=== PATIENT | female | born 1975 | race Caucasian/White ===

== ENCOUNTER 2021-05-05 10:14 | Inpatient (IN) | payer OTHER ==
[~2021-05-05] VITALS: Ht 160 cm; Wt 47.9 kg
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
[2021-05-05 12:33] LABS: BASOPHILS # (AUTO) 0.1 X10'3 (0-0.2); BASOPHILS % (AUTO) 0.8 % (0-1); EOSINOPHILS % (AUTO) 0.1 % (0-6); HEMATOCRIT 41.5 % (35.0-45.0); HEMOGLOBIN 14.3 g/dl (12.0-16.0); LYMPHOCYTES % (AUTO) 10.8 % (21-51); MEAN CORPUSCULAR HEMOGLOBIN 31.7 PG (27.0-31.0); MEAN CORPUSCULAR HGB CONC 34.5 g/dL (33.0-36.5); MEAN CORPUSCULAR VOLUME 92.1 FL (78-98); MEAN PLATELET VOLUME 7.4 FL (7.4-10.4); MONOCYTES # (AUTO) 0.5 X10'3 (0-0.9); MONOCYTES % (AUTO) 5.6 % (2-12); NEUTROPHILS # (AUTO) 7.7 X10'3 (1.8-7.7); NEUTROPHILS % (AUTO) 82.7 % (42-75); PLATELET COUNT 478 X10'3 (140-440); RED CELL DISTRIBUTION WIDTH 12.9 % (11.5-14.5); WHITE BLOOD COUNT 9.3 X10'3 (4.5-11.0)
[2021-05-05 12:53] LABS: GLUCOSE 103 MG/DL (70-104); POTASSIUM 3.3 MMOL/L (3.5-5.1); SODIUM 140 MMOL/L (135-145)
[2021-05-05 12:54] LABS: ALANINE AMINOTRANSFERASE 27 U/L (12-78); ALBUMIN 4.2 G/DL (3.4-5.0); ALKALINE PHOSPHATASE 70 IU/L (46-116); ANION GAP 10 (8-16); ASPARTATE AMINO TRANSFERASE 21 U/L (10-37); BILIRUBIN,TOTAL 0.4 MG/DL (0.1-1.0); BLOOD UREA NITROGEN 11 MG/DL (7-18); BUN/CREATININE RATIO 12.6 (6.6-38.0); CALCIUM 9.2 MG/DL (8.5-10.1); CHLORIDE 105 MMOL/L (99-107); CREATININE 0.87 MG/DL (0.40-0.90); TOTAL CARBON DIOXIDE 25.5 MMOL/L (24-32); TOTAL PROTEIN 8.5 G/DL (6.4-8.2); eGFR 71 ML/MIN
[2021-05-05 12:59] LABS: ETHANOL < 0.010 GM/DL (0.0-0.010)
--- NOTE | 2021-05-05 18:26 | NUR ---
Patient recieved from main ER accompanied by daughter and sister, no s/sx acute distress noted, will give report to oncoming shift.
[2021-05-05] MEDS ORDERED: olanzapine 10mg tablet PO ONE (19:55)
[2021-05-05] MEDS ORDERED: hydrALAZINE 25 MG tablet PO SCH (19:55)
[2021-05-05 20:07] LABS: CLARITY,URINE SLIGHTLY CLOUDY (Clear); COLOR,URINE YELLOW (Yellow); GLUCOSE, URINE NEGATIVE (Neg); KETONES,URINE >=80 mg/dl (Neg); LEUKOCYTE ESTERASE ,URINE NEGATIVE (Neg); NITRITES, URINE POSITIVE (Neg); OCCULT BLOOD,URINE TRACE-INTACT (Neg); PROTEIN,URINE NEGATIVE (Neg); UROBILINOGEN,URINE 0.2 E.U/dL (0.2-1.0)
[2021-05-05 20:10] LABS: URINE HCG NEGATIVE (NEG)
[2021-05-05 20:14] LABS: UA COLLECTION TYPE CLN CATCH MIDSTREAM
[2021-05-05 20:15] LABS: BACTERIA,URINE 1+ /HPF (Neg); MUCUS STRANDS FEW /LPF (Neg); RBC,URINE 0-2 /HPF (0-2); SQUAMOUS EPITHELIAL CELL,UR FEW /LPF (FEW)
[2021-05-05 20:23] LABS: URINE AMPHETAMINE SCREEN NEGATIVE (Neg); URINE BARBITUATE SCREEN NEGATIVE (Neg); URINE BENZODIAZEPINES SCREEN NEGATIVE (Neg); URINE CANNABINOID SCREEN POSITIVE (Neg); URINE COCAINE SCREEN NEGATIVE (Neg); URINE METHADONE SCREEN NEGATIVE (Neg); URINE OPIATE SCREEN NEGATIVE (Neg); URINE PHENCYCLIDINE SCREEN NEGATIVE (Neg)
--- NOTE | 2021-05-05 22:49 | NUR ---
PATIENTS IS VICKIE BOUDREAUX PHONE: [phone]
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
--- NOTE | 2021-05-05 23:31 | NUR ---
PATIENT IS SLEEPING QUIETLY IN A SUPINE POSITION.
[2021-05-06] MEDS ORDERED: ondansetron 4mg rapidly disintigrating tab PO ONE (01:55)
--- NOTE | 2021-05-06 01:58 | NUR ---
Pt awake and vomiting. New order for Zofran 4 mg ODT administered.
--- NOTE | 2021-05-06 02:30 | NUR ---
PATIENT AWOKE WITH NAUSEA AND IS EXHIBITING ANXIETY. CALMING MEASURES USED. PATIENT RETURNED TO SLEEP.
--- NOTE | 2021-05-06 03:35 | NUR ---
PATIENT IS SLEEPING QUIETLY ON HER RIGHT SIDE IN BED.
--- NOTE | 2021-05-06 05:19 | NUR ---
PACKET SENT TO MAINE OFFICE.
--- NOTE | 2021-05-06 07:00 | NUR ---
PT OBSERVED SLEEPING ON HER RIGHT SIDE. RR EVEN AND UNLABORED.
--- NOTE | 2021-05-06 07:30 | NUR ---
REQUESTING INFORMATION AND VISIT. PT DOES NOT WANT INFORMATION GIVEN TO THE AND DOES NOT WANT A VISIT.
--- NOTE | 2021-05-06 07:40 | NUR ---
PT REQUESTED THE PHONE TO TALK TO HER , VICKIE. SHE THEN HUNG THE PHONE UP.
--- NOTE | 2021-05-06 08:00 | NUR ---
PT AGREED TO SEE HER . TO VISIT AND BRING HER SOME MAGAZINES.
[2021-05-06] MEDS ORDERED: OLANZAPINE 5 MG TABLET PO SCH (08:05)
--- NOTE | 2021-05-06 09:19 | NUR ---
IS AT HER BEDSIDE. PT IS SLEEPING AGAIN ON HER RIGHT SIDE. RR EVEN AND UNLABORED.
--- NOTE | 2021-05-06 11:22 | NUR ---
PT'S IS IN AND OUT BECAUSE PT WANTS HIM HERE THEN SHE ASK HIM TO LEAVE AND THEN SHE WANTS HIM TO COME BACK. PT IS NOW RESTING AGAIN ON HER RIGHT SIDE. RR EVEN AND UNLABORED.
[2021-05-06] MEDS: olanzapine 10mg tablet PO SCH (12:07)
--- NOTE | 2021-05-06 12:47 | NUR ---
PT CONTUINES TO REST ON HER RIGHT SIDE.
--- NOTE | 2021-05-06 13:47 | NUR ---
PT'S DAUGHTER IS HERE VISITING HER. SHE BROUGHT HER SOME BOOKS AND CRAYONS. PT CONTINUES TO SLEEP. RR EVEN AND UNLABORED.
--- NOTE | 2021-05-06 13:58 | NUR ---
PT CONTINUES TO REST WITH HER DAUGHTER AT HER BEDSIDE.
[2021-05-06] MEDS: buPROPion SR 150mg tablet PO SCH (15:08)
[2021-05-06] MEDS: ESCITALOPRAM OXALATE 5 MG TABLET PO SCH (15:09)
--- NOTE | 2021-05-06 15:30 | NUR ---
PT SEEN BY [facility]. SHE ALSO TOOK HER HOME MEDS. SHE RECENTLY WAS GIVEN PRESCRIPTIONS FOR VISTIRIL AND TRAZADONE BUT HAS ONLY TAKEN TRAZADONE FOR ANXIETY X1 PER . PT HAS BEEN SLEEPING MOST OF THE DAY. SHE IS NOW ON OLANZAPINE 10MG DAILY.
--- NOTE | 2021-05-06 16:26 | NUR ---
PT'S AT THE BEDSIDE. PT UP ASKING FOR FOOD. SHE SLEPT THROUGH LUNCH.
--- NOTE | 2021-05-06 17:51 | NUR ---
Ramiro rich in [facility] - 05/06/21 at 1753 by DAVID PT IS UP WALKING AROUND AND ASKING STAFF TO DIAL A PHONE NUMBER FOR HER. SHE IS SMILING AND INTERACTING APPROPRIATELY WITH STAFF AND PEERS.
--- NOTE | 2021-05-06 17:53 | NUR ---
PT IS RESTING ON HER BED. SHE IS NOW ON A HOLD.
--- NOTE | 2021-05-06 20:00 | NUR ---
The patient has been resting quietly on her bed. She gave soft minimal replies. She is oriented. When asked why she was here she stated that she was very worried that her daughter was suicidal. When asked how her mood was she replied, "I'm tired, sad and bummed out but not upset" She denied feeling paranoid and then stated, "I've been feeling anxious because my son " She denied having anxiety currently. SHe denies having auditory or visual hallucinations. She denies suicidal or homicidal thoughts. She denies racing thoughts. She denied problems with her concentration and focus. Her affect is blunted. Her HR was 110. She may be minimimizing her symptoms.
--- NOTE | 2021-05-06 21:35 | NUR ---
The patient appears to be sleeping
--- NOTE | 2021-05-06 23:52 | NUR ---
The patient appears to be sleeping
--- NOTE | 2021-05-07 01:05 | NUR ---
The patient appears to be sleeping
--- NOTE | 2021-05-07 02:38 | NUR ---
The patient appears to be sleeping
--- NOTE | 2021-05-07 04:27 | NUR ---
The patient appears to be sleeping
--- NOTE | 2021-05-07 07:00 | NUR ---
Received patient who was sleeping. 1:1 patient assessment and interview completed. Patient appears to be slightly shaking in arms. Quiet voice responding to questions. Patient denies suicidal ideation. Patient denies hallucinations. Will continue to monitor.
[2021-05-07] MEDS: olanzapine 10mg tablet PO SCH (07:36)
[2021-05-07] MEDS: ESCITALOPRAM OXALATE 5 MG TABLET PO SCH (07:36)
[2021-05-07] MEDS: buPROPion SR 150mg tablet PO SCH (07:37)
--- NOTE | 2021-05-07 09:00 | NUR ---
Medications given per EMAR. Patient states she has no plan for suicide at this time, but reports having difficulty since her son due to a Fentanyl overdose. Patient speaks slowly and does not express herself and has no insight to what is going on with her at this time. Patient is alert & oriented. Reports she is from [place], but understands her place, time and date. Will continue to monitor. Resting at this time.
--- NOTE | 2021-05-07 11:00 | NUR ---
Patient's sister came to visit with patient. Patient told her she was not taking visitors and would not answer her questions. Sister left at this time. , Inder entered the department and requested to speak with his . Patient also told the patient "I am not taking visitors."
--- NOTE | 2021-05-07 13:00 | NUR ---
Patient called this RN over to her bedside. Patient asked if the water and the julienne crackers were safe to eat. Informed the patient that both were safe to eat. That both are from here inside the hospital, and I had just retrieved these items from our Nutrition Room. Patient then agreed and stated "I just need to be sure."
--- NOTE | 2021-05-07 14:00 | NUR ---
Patient requested to speak with me. Patient stated "I don't want any visitors anymore." Informed patient that we respect her decisions and will abide by them. Note typed by MEJIA Petit to inform all staff members of patient's decision.
[2021-05-07] MEDS ORDERED: LORazepam 1 MG tablet PO ONE (15:45)
--- NOTE | 2021-05-07 15:45 | NUR ---
Patient requested assistance. Went to patient's bedside and observed her arms shaking. Patient speaking in a soft manner stated "I need something for anxiety." Informed patient that I would go talk to the Emergency Dept MD: Dr. Bryson, and discuss an order for Ativan. Patient appeared to be relieved. Went to ED and spoke to Dr. Bryson and received order for Ativan 1mg po now. Ativan administered at 1545. (1615) Patient sleeping at this time. Appears comfortable.
--- NOTE | 2021-05-07 17:24 | NUR ---
Patient still sleeping at this time. Will continue to monitor in line of sight.
--- NOTE | 2021-05-07 19:51 | NUR ---
Pt awake in bed since start of shift. Guarded, denies mental health symptoms. Pt unable to explain why she is here said "my daughter and my beliefs were different and that caused problems."
--- NOTE | 2021-05-07 23:54 | NUR ---
Pt sleeping at this time.
--- NOTE | 2021-05-08 03:09 | NUR ---
Pt resting in bed with eyes closed at this time. Up x1 to BSC with moderate assist. Incontinent moderate amount of urine continent 400 cc clear noreen urine in BSC. Rosette care done skin clear.
--- NOTE | 2021-05-08 03:13 | NUR ---
Disregard previous note wrong pt.
--- NOTE | 2021-05-08 03:14 | NUR ---
Pt sleeping at this time. Awake up to BR independently went back to sleep.
--- NOTE | 2021-05-08 05:02 | NUR ---
Pt awake in bed has been coloring and reading.
--- NOTE | 2021-05-08 08:00 | NUR ---
Patient is resting upon arrival to shift, but not sleeping. She drives herself to get up and groom. She does eat a small amount of breakfast and does not act suspicious of the medicines that I give her. She verbalizes that she understands and is familiar with each medication. , Inder, calls for an update and provides information/background to me about her previous dx and concerns. He asks to visit. When i ask Edith if she would allow that, she states that he cannot come. When I ask about her daughter, Tiara, she hesitates stating that she is distrustful given yesterday she thought Tiara was coming, but her sister arrived instead and she felt tricked. By the end of this exchange, she verbalizes that she will think about letting Inder come. I inform Inder that he can call back in two hours to try again. During this time, Edith gets a bed upstairs and Tiara is updated. Dr. Sherman, Tiara's psychiatrist, calls to let us know he can help provide info and collaboration. I am told that James, the hospital social worker, stated that this cannot happen until she is of her 5150? I inform him of this and here is his number for collaboration in [place]: [phone]. Edith leaves hold unit at 0930.
[2021-05-08] MEDS: ESCITALOPRAM OXALATE 5 MG TABLET PO SCH (08:10)
[2021-05-08] MEDS: olanzapine 10mg tablet PO SCH (08:10)
[2021-05-08] MEDS: buPROPion SR 150mg tablet PO SCH (08:10)
[2021-05-08] MEDS ORDERED: mag hydrox/Alum hydrox/simeth 30ml oral suspension PO PRN (09:25)
[2021-05-08] MEDS ORDERED: acetaminophen 325mg tablet PO PRN ×2 (09:25)
[2021-05-08] MEDS ORDERED: loperamide 2mg capsule PO PRN (09:25)
[2021-05-08] MEDS ORDERED: magnesium hydroxide 30ml (MOM) UD suspension PO PRN (09:25)
--- NOTE | 2021-05-08 09:30 | NUR ---
ADMISSION NOTE: Patient was brought in on a 5150 for DTS and gravely disabled. Patient ambulates to the shower where two person skin check was performed, no skin issues. Patient was evaluated by Dr. Turk and then her daughter came up and visited for approximately 15 minutes and then the patient went to bed tearful. Patient denies A/V/H. Denies suicidality except for when she was 22 years old, she stated she started to take an overdose of Benadryl and then stopped herself. Patient's son overdosed approximately one month ago and patient states that she had a "breakdown". She does admit to making statements such as "I just want to ", with no intent to act. Patient states she is going through grief. Patient was observed walking down the hallway with her roommate amicably.
[2021-05-08 11:21] VITALS: BP 131/90
[2021-05-08] MEDS ORDERED: BUPR150T8 PO (12:45)
[2021-05-08] MEDS ORDERED: ESCI20TA17 PO (12:45)
[2021-05-08] MEDS ORDERED: LORazepam 0.5 MG tablet PO PRN (19:50)
[2021-05-08 20:16] VITALS: BP 142/86
[2021-05-08] MEDS: traZODone 50mg tablet PO PRN (20:28)
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
[2021-05-09 07:00] VITALS: BP 148/91
[2021-05-09] MEDS: olanzapine 10mg tablet PO SCH (08:00)
--- NOTE | 2021-05-09 08:05 | NUR ---
Malnutrition Consult: Noted pt stated wt loss of 2-13 lbs per RN malnutrition screen; no documented hx of wt loss in EMR. Pt PO intake ~34% of regular diet x 4 meals, pending further PO trends. marketing operations intern d/w RN pt physical state; RN stated pt is thin but does not appear to have any signs of muscle or fat wasting. No edema noted, w/ general/normal strength. Pt does not meet minimum criteria for malnutrition at this time. Will continue to monitor. Addendum: 05/09/21 at 0806 by Jed Marie - Medical Supply Technician RD Amended: Links added. Addendum: 05/09/21 at [address] I have reviewed assessment by marketing operations intern
[2021-05-09 08:46] LABS: CHOL/HDL RATIO 3.4 (0.00-4.99); CHOLESTEROL 209 MG/DL (0-200); HDL CHOLESTEROL 61 MG/DL (35-60); LDL CHOLESTEROL 107 MG/DL (50-100); TRIGLYCERIDES 93 MG/DL (20-135)
[2021-05-09 09:27] LABS: HEMOGLOBIN A1C 5.1 % (4.5-6.2)
[2021-05-09] MEDS ORDERED: BUPR-317 PO (10:28)
[2021-05-09] MEDS ORDERED: ESCITALOPRAM OXALATE 5 MG TABLET PO ONE ×2 (11:55→12:35)
[2021-05-09] MEDS ORDERED: COVID-19 VACC, MRNA(PFIZER)/PF--BNT162b2 syringe IMVAC ONE (12:35)
--- NOTE | 2021-05-09 16:07 | NUR ---
Group Art Tx, Continued:Patient participated in the group art therapy for the first time. She was motivated and quickly expressed herself in the use of imagery: she ellen a beautiful tree filled with pink chowdary blossoms. She was able to write and also express the loss of her son. She wrote: I am your heart! I think there are a lot of kind/beautiful hearts here. I feel grateful for Alexandro & my love ones/friends. I wish everyone here peaceful, joyful hearts, I want to dance. I need to take better care of myself. I will follow the lord. I believe in the power of catrach[employer] and hope. I am excited to live everyday, and be reunited with my sone one day in [facility]." *Please refer to [employer] for a complete overview of todays session. Devika Sun MA, CHILD DEVELOPMENT PROFESSOR #[id number] [facility] Art Therapist Addendum: 05/09/21 at 1609 by Devika Sun SS Amended: Links added.
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
[2021-05-09 20:00] VITALS: BP 135/102
[2021-05-09] MEDS: traZODone 50mg tablet PO PRN (20:13)
[2021-05-09] MEDS ORDERED: OLANZapine 2.5MG tablet PO SCH (21:00)
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
[2021-05-10 07:56] VITALS: BP 154/91
[2021-05-10] MEDS: buPROPion 75mg tablet PO SCH (08:20)
[2021-05-10] MEDS: ESCITALOPRAM OXALATE 5 MG TABLET PO SCH (08:20)
--- NOTE | 2021-05-10 15:54 | NUR ---
Group Art Tx, Continued: Patient has been motivated and able to fully participate. She identified her stages of loss/grief & change as Acceptance and Developing Meaning. She noted that she has dealt with her stages of loss in the past by "Journaling, reading, family & friends, praying and doing volunteer work." She wrote: I am a person who..." is grateful for the time I had with my son and am committed to honoring him through my purpose/career & following the Lord." *Please refer to [employer] for a complete overview of todays session. Devika Sun MA, SALES OFFICE ASSISTANT #[id number] [facility] Art Therapist Addendum: 05/10/21 at 1555 by Devika Sun SS Amended: Links added.
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
[2021-05-10] MEDS ORDERED: ESCI20TA17 PO (18:25)
[2021-05-10] MEDS ORDERED: OLAN5TAB29 PO (18:25)
[2021-05-10] MEDS ORDERED: BUPR75TA8 PO (18:25)
[2021-05-10] MEDS ORDERED: TRAZ-251 PO (18:25)
[2021-05-10] MEDS: traZODone 50mg tablet PO PRN (20:15)
[2021-05-10 20:41] VITALS: BP 141/89
[2021-05-10] MEDS ORDERED: OLANZapine 2.5MG tablet PO SCH (21:00)
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
[2021-05-11] MEDS: ESCITALOPRAM OXALATE 5 MG TABLET PO SCH (07:20)
[2021-05-11] MEDS: buPROPion 75mg tablet PO SCH (07:20)
[2021-05-11 07:57] VITALS: BP 128/82
--- NOTE | 2021-05-11 12:38 | NUR ---
Discharge Note: Paperwork and follow up plan review with the patient who is agreeable to discharge home to self-care. States, Im excited. Prescriptions sent to [facility] as patients pharmacy of choice. No s/sx acute distress are noted. Escorted off the unit by staff at 09:15 with all of her belongings and is picked up by family. Discharged with the following instructions: Follow-Up: Patient has been scheduled/referred to the following providers for post-hospital discharge and aftercare treatment. Psychiatrist: Dr. Nato Sherman You are encourage to contact your outpatient provider and request for a post-hospital appointment. Primary Care Provider: You are encouraged to contact your PCP and request for a post hospital appointment. Therapist: You are encouraged to contact your therapist and request for a post hospital appointment. Discharge Address: Home [address] [place] [id number] Transportation: Family to picker packer Patient given community crisis services information and National suicide hotline handout. Resources for education regarding mental illness: [facility] [place] [address], [place] [address] For urgent mental health crisis needs please contact [facility] 29/10 Crisis/ACCESS Line:
== END 2021-05-11 09:14 | disposition home or self-care (01) | DRG 885 ==
LOC: ER 10:15 → ED HOLD 05-08 08:45 → ADULT MH 05-08 09:20
PROVIDERS: ADMIT Psychiatry & Neurology Neurology with Special Qualifications in Child Neurology; ATTEND Psychiatry & Neurology Neurology with Special Qualifications in Child Neurology
DX: F33.2 Major depressive disorder, recurrent severe without psychotic features (principal); F23 Brief psychotic disorder; F43.10 Post-traumatic stress disorder, unspecified; D51.0 Vitamin B12 deficiency anemia due to intrinsic factor deficiency; F12.90 Cannabis use, unspecified, uncomplicated; Z20.822 Contact with and (suspected) exposure to COVID-19; F90.9 Attention-deficit hyperactivity disorder, unspecified type; D50.9 Iron deficiency anemia, unspecified; F42.9 Obsessive-compulsive disorder, unspecified; Z81.8 Family history of other mental and behavioral disorders; Z82.49 Family history of ischemic heart disease and other diseases of the circulatory system; Z80.8 Family history of malignant neoplasm of other organs or systems; Z88.8 Allergy status to other drugs, medicaments and biological substances
CPT/HCPCS: 36415; 80053; 80061; 80305; 80320; 81001; 81025; 82607; 83036; 84443; 85025; 87081; 87635; 99285; C9803